=== PATIENT | male | born 1955 | race Caucasian/White ===

== ENCOUNTER → 2020-02-24 | Outpatient (CLI) | payer OTHER | LOC: LAB 11:32 | PROVIDERS: ATTEND Student in an Organized Health Care Education/Training Program | DX: Z01.812 Encounter for preprocedural laboratory examination (principal); Z11.59 Encounter for screening for other viral diseases ==

== ENCOUNTER → 2020-02-28 | Outpatient (CLI) | payer OTHER ==
[~2020-02-28] VITALS: Ht 180.3 cm; Wt 136.1 kg
[~2020-02-28] MED LIST: AMLODIPINE-VAL1 EAC3 PO; BYSTOLIC 5 MG5 M1 PO; SILDENAFIL20 MG PO
--- NOTE | 2020-03-02 10:03 | P ---
[facility] [place] [address] PROCEDURE REPORT Name: OFELIA SCHULTZ Cinthya Room #: REG [facility]#: [id number] Admission: 02/28/20 Attend Phys: Gopi Negron MD Discharge: Date of : 51 Report #: [id number] THIS REPORT FOR: cc: Antelmo Abebe MD, Rene P. MD Thesing, John A. MD ~ CC: Gopi Abebe OUTPATIENT COLONOSCOPY REPORT BRIEF HISTORY: The patient is a 64-year-old male with a family history of colon cancer, mother in her 70s. PREOPERATIVE DIAGNOSIS: Family history of colon cancer. POSTOPERATIVE DIAGNOSIS: A 5 mm polyp, hepatic flexure. MEDICATIONS: Deep sedation with propofol per anesthesia. SPECIMEN: Polyp from hepatic flexure. ESTIMATED BLOOD LOSS: 3 mL. PROCEDURE: Colonoscopy to cecum and terminal ileum with snare polypectomy. FINDINGS: Prior to propofol sedation, procedure of colonoscopy discussed with the patient as well as potential risks and its complications. He indicates he understands and desires to proceed. DESCRIPTION OF PROCEDURE: With the patient in left lateral decubitus position, digital examination was completed, which revealed no abnormalities. Subsequently, the Olympus video colonoscope was introduced into the rectum, advanced under direct vision to the cecum. Done with minimal difficulty. The cecum was identified by the ileocecal valve and the appendiceal orifice. I was able to visualize the distal segment of the terminal ileum, which was inspected and noted to be unremarkable. At that point, the scope was slowly withdrawn and careful circumferential views were obtained. Upon slow withdrawal of the scope, there were some limitations of the prep. However, we were able to irrigate with washing as well as suctioning and overall after clean up obtained a good prep. The mucosa was within normal limits, normal vascular pattern, normal light reflex. As the scope was withdrawn, he was noted to have normal colonic mucosa. However, at the hepatic flexure, a 5 mm sessile polyp was seen and removed by cold snare polypectomy and recovered. Scope was further withdrawn and no neoplastic lesions were seen. The mucosa through the remaining colon was normal. The scope was withdrawn in the rectum, no abnormalities were seen. [facility] [address] [place] [address] PROCEDURE REPORT Name: OFELIA SCHULTZ Room #: REG [facility]#: [id number] Admission: 02/28/20 Attend Phys: Gopi Negron MD Discharge: Date of : 51 Report #: [id number] Upon retroflexion, no abnormalities were seen. Scope was withdrawn. The patient tolerated the procedure well. CONDITION OF THE PATIENT UPON DISCHARGE: Following procedure, the patient drowsy, aroused, conversant and will be discharged home when fully ambulatory. INSTRUCTIONS TO THE PATIENT AND FAMILY AT THE TIME OF DISCHARGE: One small polyp identified and removed today. We will follow up on the pathology. Since a polyp was found, suggest followup colonoscopy in 5 years. Last colonoscopy was 5 years ago. Withdrawal time from the cecum was 14 minutes and 3 seconds. <ELECTRONICALLY SIGNED> By: Gopi Negron MD 03/02/20 1003 0832 Gopi Negron MD /nt
--- NOTE | 2020-03-03 15:07 | PATH ---
[facility] [address] [place] [address] PATHOLOGY RPT PROCEDURE Name: OFELIA SCHULTZ Room #: REG [facility] Ese.#: [id number] Admission: 02/28/20 Date of : 51 Discharge: Report #: [id number] Path Case #: [id number] Accession Number: [id number] . 01 Material submitted: . hepatic flexure - POLYP AT HEPATIC FLEXURE . 01 Clinical history: . Family history of colon cancer; polyp; screening . 02 Diagnosis: Polyp, at hepatic flexure, endoscopic biopsy: - Tubular adenoma. - Negative for high-grade dysplasia. (IUV:pit 03/03/2020) QTP 03/03/2020 1326 Local . 02 Electronically signed: . Senait Moore MD, Pathologist NPI- [id number] . 01 Gross description: . The specimen is received in formalin, labeled "Macario, Ofelia, polyp at hepatic flexure" and consists of a fragment of rowe tissue measuring 0.6 x 0.4 x 0.3 cm which is entirely submitted in A1. (SDY; 03/02/2020) SYU/SYU 03/02/2020 1345 Local . 02 Pathologist provided ICD-10: D12.3 . 02 CPT . 029512 Specimen Comment: A courtesy copy of this report has been sent to [phone], [phone] Specimen Comment: [id number] Specimen Comment: Report sent to / DR SANCHEZ Performed at: [address], [place], [place] [id number] MD Kurtis Servin MD Phone: [phone] Performed at: [address] [id number] MD Senait Moore MD Phone: [phone]
== END | disposition home or self-care (01) ==
LOC: GI 06:23
PROVIDERS: ATTEND Specialist
DX: Z12.11 Encounter for screening for malignant neoplasm of colon (principal); K63.89 Other specified diseases of intestine; I10 Essential (primary) hypertension; Z80.0 Family history of malignant neoplasm of digestive organs; Z87.891 Personal history of nicotine dependence; Z79.899 Other long term (current) drug therapy
CPT/HCPCS: 62110; 62900